=== PATIENT | male | born 1990 | race Two or more races ===

== ENCOUNTER 2018-03-21 13:50 | Emergency (ER) | payer OTHER ==
[~2018-03-21] VITALS: Ht 180.3 cm; Wt 72.6 kg
[2018-03-21 13:54] VITALS: BP 128/83
--- NOTE | 2018-03-21 14:02 | NUR ---
ED Nurse Note: suture removal on LUE; done 7 days ago.
[2018-03-21] MEDS ORDERED: BACTROBAN15 GM TOPIC (14:25)
--- NOTE | 2018-03-21 14:25 | Emergency Room Report ---
History of Present Illness General Chief Complaint: Wound Recheck/Suture Removal Source: Patient Present Illness HPI 27-year-old male with no significant past medical history here for removal of sutures on left upper arm. Patient had a laceration to be a glass left upper arm 7 days ago. Patient denies fever, chills, severe pain in the left arm, tingling and numbness. She has been taking ibuprofen for pain as needed. Reports 0 out of 10 pain and ED today. No chest pain, etc., palpitation, headache, dizziness, and all other associated symptoms. She has full sensation around the laceration. Allergies: Coded Allergies: No Known Allergies (Unverified , 03/21/18) Patient History Past Medical History: see triage record Past Surgical History: none Pertinent Family History: none Immunizations: UTD Reviewed Nursing Documentation: PMH: Agreed; PSxH: Agreed Nursing Documentation-PMH Past Medical History: No Stated History Review of Systems All Other Systems: negative except mentioned in HPI Physical Exam Vital Signs Date Time Temp Pulse Resp B/P (MAP) Pulse Ox O2 Delivery O2 Flow Rate FiO2 03/21/18 13:54 97.5 67 16 128/83 99 Room Air Sp02 EP Interpretation: reviewed, normal General Appearance: normal inspection, well appearing, alert Head: normocephalic Eyes: bilateral eye normal inspection, bilateral eye PERRL ENT: normal ENT inspection, normal pharynx Neck: normal inspection, full range of motion, supple Respiratory: normal inspection, lungs clear, no rhonchi, no wheezing Cardiovascular #1: normal inspection, regular rate, rhythm, no edema, no murmur Cardiovascular #2: 2+ radial (R), 2+ radial (L) Gastrointestinal: normal inspection, non tender, soft Rectal: deferred Genitourinary: deferred Musculoskeletal: digits/nails normal, non-tender, other - repaired lac left upper arm Neurologic: normal inspection, alert, oriented x3 Psychiatric: normal inspection, judgement/insight normal Skin: laceration - healed no pus left upper arm Lymphatic: normal inspection, no adenopathy Procedures Additional Procedure Procedure Narrative suture removal: 5 sutures, 3 steri strips, wound dressing applied after Medical Decision Making PA Attestation all diagnoses and treatment plans were reviewed and discussed with my supervising physician Dr. Siddiqi Diagnostic Impression: Primary Impression: Encounter for removal of sutures Additional Impression: Encounter for post-traumatic wound check ER Course 27-year-old male with no significant past medical history here for removal of sutures on left upper arm. Patient had a laceration to be a glass left upper arm 7 days ago. Patient denies fever, chills, severe pain in the left arm, tingling and numbness. She has been taking ibuprofen for pain as needed. Reports 0 out of 10 pain and ED today. No chest pain, etc., palpitation, headache, dizziness, and all other associated symptoms. She has full sensation around the laceration. Ddx considered but are not limited to suture removal, wound dressing, infected laceration Vital signs: are WNL, pt. is afebrile H&PE are most consistent with suture removal, wound dressing ORDERS: bactroban, ED INTERVENTIONS: suture removal and wound dressing DISCHARGE: At this time pt. is stable for d/c to home. Will provide printed patient care instructions, and any necessary prescriptions. Care plan and follow up instructions have been discussed with the patient prior to discharge. Last Vital Signs Date Time Temp Pulse Resp B/P (MAP) Pulse Ox O2 Delivery O2 Flow Rate FiO2 03/21/18 13:54 97.5 64 16 128/83 99 Room Air Disposition: HOME, SELF-CARE Condition: Stable Scripts Mupirocin (BACTROBAN CR) 15 Gm Cream..g. 1 APPLIC TOPIC THREE TIMES A DAY, #15 GM Prov: Bri Malave 03/21/18 Patient Instructions: Wound Check Bri Malave Mar 21, 2018 14:25
[2018-03-21 14:31] VITALS: BP 128/83
--- NOTE | 2018-03-21 14:31 | NUR ---
ED Nurse Note: Patient is being discharged from medical care. Awake, alert and oriented x4. After care instructions, were given. Patient verbalized understanding of After care instructions All medical devices such as ID band were removed. Patient ambulated out with all personal belongings with steady gait.
--- NOTE | 2018-03-21 14:33 | NUR ---
wound clean,dry and intact.dressing applied.
== END 2018-03-21 15:13 | disposition home or self-care (01) ==
LOC: EMR 14:45
DX: S41.112A Laceration without foreign body of left upper arm, initial encounter (principal); Z48.02 Encounter for removal of sutures; W25.XXXA Contact with sharp glass, initial encounter; Y92.9 Unspecified place or not applicable
CPT/HCPCS: 99282